=== PATIENT | female | born 2005 | race Caucasian/White ===

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

== ENCOUNTER 2024-03-31 15:17 | Outpatient (CLI) | payer BC | END 2024-03-31 15:18 | disposition home or self-care (01) | LOC: BICRAD 15:17 | PROVIDERS: ATTEND Internal Medicine Rheumatology | DX: M54.2 Cervicalgia (principal); M06.09 Rheumatoid arthritis without rheumatoid factor, multiple sites | CPT/HCPCS: 72040 ==